=== PATIENT | male | born 1985 | race Caucasian/White ===

== ENCOUNTER 2017-11-24 20:24 | Emergency (ER) | payer MEDICAID ==
[~2017-11-24] VITALS: Ht 170.2 cm; Wt 78.1 kg
[2017-11-24 20:34] VITALS: BP 146/80
== END 2017-11-24 21:19 | disposition home or self-care (01) ==
LOC: ED 21:13
DX: K04.7 Periapical abscess without sinus (principal); K02.9 Dental caries, unspecified
CPT/HCPCS: 99283